=== PATIENT | female | born 1960 | race Caucasian/White ===

== ENCOUNTER 2016-10-29 03:52 | Inpatient (IN) | payer OTHER ==
[2016-10-29] VITALS (8 sets, daily range): BP systolic 94–130; BP diastolic 55–91; PULSE 45–72; RESP 16–20; TEMP 97.6–98.6; O2SAT 91–98
[~2016-10-29] VITALS: Ht 167.6 cm; Wt 135.0 kg
[2016-10-29] MEDS ORDERED: CELE40TA PO (04:11)
[2016-10-29] MEDS ORDERED: LAMI200T PO (04:11)
[2016-10-29] MEDS ORDERED: ASPIRIN 81 MG CHEW TAB PO ONE (04:15)
[2016-10-29] MEDS ORDERED: NITROGLYCERIN 2% OINT 1 GM PACKET TOP ONE (04:15)
[2016-10-29] MEDS ORDERED: SODIUM CHLORIDE 0.9% FLUSH 10 ML FLUSH IVF PRN (04:15)
[2016-10-29 04:29] LABS: AUTOMATED NEUTROPHIL # 5.3 TH/MM3 (1.8-7.7); BASOPHIL # 0.1 TH/MM3 (0-0.2); BASOPHIL % 0.7 % (0.0-2.0); EOSINOPHIL # 0.2 TH/MM3 (0-0.4); EOSINOPHIL % 2.5 % (0.0-4.0); HEMATOCRIT 43.4 % (35.0-46.0); HEMO FLAGS DIFF FINAL; LYMPH % 34.6 % (9.0-44.0); LYMPHOCYTE # 3.3 TH/MM3 (1.0-4.8); MEAN CELL VOLUME 94.7 FL (80.0-100.0); MEAN CORPUSCULAR HEMOGLOBIN 32.3 PG (27.0-34.0); MEAN CORPUSCULAR HGB CONC 34.1 % (32.0-36.0); MONO % 6.9 % (0.0-8.0); NEUT % 55.3 % (16.0-70.0); PLATELET COUNT 259 TH/MM3 (150-450); RED BLOOD COUNT 4.58 MIL/MM3 (4.00-5.30); WHITE BLOOD COUNT 9.6 TH/MM3 (4.0-11.0)
--- NOTE | 2016-10-29 04:39 | RADRPT ---
EXAM DATE/TIME: 10/29/2016 04:10 [facility] COMPARISON: No previous studies available for comparison. INDICATIONS : Chest pain. MEDICAL HISTORY : None. SURGICAL HISTORY : None. ENCOUNTER: Initial ACUITY: 1 day PAIN SCORE: 0/10 LOCATION: Bilateral chest FINDINGS: A single view of the chest demonstrates the lungs to be symmetrically aerated without evidence of mas s, infiltrate or effusion. The cardiomediastinal contours are unremarkable. Osseous structures are intact. CONCLUSION: No acute disease. Timbo Quezada MD on October 29, 2016 at 4:38 Board Certified Radiologist. This report was verified electronically.
[2016-10-29 04:48] LABS: INTERNATIONAL NORMALIZED RATIO 0.9 RATIO; PROTHROMBIN TIME - PATIENT 10.3 SEC (9.8-11.6)
[2016-10-29 05:15] LABS: ALKALINE PHOSPHATASE 76 U/L (45-117); ALT (GPT) 18 U/L (10-53); ANION GAP 8 MEQ/L (5-15); AST (GOT) 15 U/L (15-37); BICARBONATE 26.9 MEQ/L (21.0-32.0); BLOOD UREA NITROGEN 8 MG/DL (7-18); CHLORIDE 103 MEQ/L (98-107); GLOMERULAR FILTRATION RATE 94 ML/MIN (>89); POTASSIUM 3.3 MEQ/L (3.5-5.1); SODIUM (NA) 138 MEQ/L (136-145); TOTAL BILIRUBIN ADULT 0.3 MG/DL (0.2-1.0)
[2016-10-29 05:17] LABS: CREATINE KINASE 63 U/L (26-192)
--- NOTE | 2016-10-29 05:25 | PD ---
HPI Chief Complaint: Chest Pain Time Seen by Provider: 04:10 Travel History International Travel<30 days: No Contact w/Intl Traveler<30days: No Traveled to known affect area: No History of Present Illness HPI The patient is a 56 year old female who presents to the [facility] emergency department with a history of chest pain and she reports is present in bilateral sides of the chest underneath the breast that began at approximately 2 :30 AM. The patient reports that it began as a sensation of indigestion, however it has been constant and worsening in spite of taking Tums. She reports that it got worse when she tried to lie down. She reports that she last ate at midnight a handful of Bugles. The patient denies having any nausea or vomiting. She reports that she does have diaphoresis associated with this and a sensation of having a hot flash. She denies having any shortness of breath. She reports that she felt like she was having palpitations. The patient reports having a family history of heart disease in her mother. Her mother had her first MO at 48 years of age. The patient reports that because of this she did undergo a heart catheterization 8 years ago which was reportedly unremarkable. She does report having a long-standing history of hyperlipidemia, however she has tried at least 5 different lipid-lowering agents , however she has side effects of myalgias related to these medications and has had to discontinue all of them. The patient reports that she does frequently get a pressure sensation in the midepigastric area, however she attributes this to her hiatal hernia. The patient reports that she smokes one pack of cigarettes per day. She denies drinking any alcohol. On review of systems, the patient denies any fevers, cough, congestion, neck pain, diarrhea, urinary symptoms, or neurologic symptoms. [facility] Past Medical History Narrative Medical The Patient's past medical history is significant for hyperlipidemia, depression , sleep apnea, and seasonal allergies. Depression: Yes Hiatal Hernia: Yes Sleep Apnea: Yes Tetanus Vaccination: Unknown Influenza Vaccination: No ?: Not Past Surgical History Narrative Surgical The patient's past surgical history is significant for breast reduction, appendectomy, carpal tunnel release on the left, 2 prior C-sections, history of cholecystectomy. Appendectomy: Yes Section: Yes (X2) Cholecystectomy: Yes Other Surgery: Yes (BREAST RED., CARPEL TUNNEL L.) Social History Alcohol Use: No Tobacco Use: Yes Substance Use: No Allergies-Medications (Allergen,Severity, Reaction): Coded Allergies: Banana (Verified Allergy, Severe, 10/29/16) Reported Meds & Prescriptions Reported Meds & Active Scripts Active Reported Lamictal (Lamotrigine) 200 Mg Tab 200 Mg PO DAILY Celexa (Citalopram Hydrobromide) 40 Mg Tab 40 Mg PO DAILY Review of Systems Except as stated in HPI: all other systems reviewed are Neg General / Constitutional: No: Fever Eyes: No: Visual changes HENT: No: Headaches Cardiovascular: Positive: Chest Pain or Discomfort, Diaphoresis Respiratory: No: Shortness of Breath Gastrointestinal: Positive: Abdominal Pain, Indigestion, No: Nausea, Vomiting , Diarrhea, Hematemesis, Hematochezia, Constipation, Changes in Bowel Habits, Loss of Appetite Genitourinary: No: Dysuria Musculoskeletal: No: Pain Skin: No Rash Neurologic: No: Weakness Psychiatric: No: Depression Endocrine: No: Polydipsia Hematologic/Lymphatic: No: Easy Bruising Physical Exam Narrative General: The patient is a well-developed well-nourished female who is uncomfortable appearing on arrival, holding her mid epigastric area. Head and Neck exam: Head is normocephalic atraumatic. Eyes: EOMI, pupils are equal round and reactive to light. Nose: Midline septum with pink mucous membranes Mouth: Dentition unremarkable. Moist mucus membranes. Posterior oropharynx is not erythematous. No tonsillar hypertrophy. Uvula midline. Airway patent. Neck: No palpable lymphadenopathy. No nuchal rigidity. No thyromegaly. Cardiovascular: Regular rate and rhythm without murmurs, gallops, or rubs. No pulse deficit to the extremities and simultaneous auscultation and palpation of her radial artery. Lungs: Clear to auscultation bilaterally. No wheezes, rhonchi, or rales. Abdomen: Soft, with tenderness on palpation of the midepigastric area, no other tenderness on palpation of the other quadrants of the abdomen. No guarding, rebound, or rigidity. Normal bowel sounds are audible. No tenderness on palpation of McBurney's point. Negative Shidler sign. Extremities: No clubbing, cyanosis, or edema. 2+ pulses in all 4 extremities. No calf tenderness on palpation. Back: No spinous process tenderness to palpation. No costovertebral angle tenderness to palpation. Neurologic Exam: Grossly nonfocal. Skin Exam: No rash noted. Intact skin that is warm and dry. Data Data Last Documented VS Vital Signs Date Time Temp Pulse Resp B/P Pulse Ox O2 Delivery O2 Flow Rate FiO2 10/29/16 04:37 96 Nasal Cannula 2.00 10/29/16 04:03 65 20 10/29/16 03:58 98.2 128/91 Orders Electrocardiogram (10/29/16 04:11) B-Type Natriuretic Peptide (10/29/16 04:11) Ckmb (Isoenzyme) Profile (10/29/16 04:11) Complete Blood Count With Diff (10/29/16 04:11) Comprehensive Metabolic Panel (10/29/16 04:11) Magnesium (Mg) (10/29/16 04:11) Prothrombin Time / Inr (Pt) (10/29/16 04:11) Act Partial Throm Time (Ptt) (10/29/16 04:11) Troponin I (10/29/16 04:11) Lipase (10/29/16 04:11) Chest, Single Ap (10/29/16 04:11) Ecg Monitoring (10/29/16 04:11) Bilateral Bp Monitoring (10/29/16 04:11) Iv Access Insert/Monitor (10/29/16 04:11) Oximetry (10/29/16 04:11) Oxygen Administration (10/29/16 04:11) Aspirin Chew (Aspirin Chew) (10/29/16 04:15) Nitroglycerin 2% Oint (Nitroglycerin 2% (10/29/16 04:15) Sodium Chloride 0.9% Flush (Ns Flush) (10/29/16 04:15) Sodium Chlor 0.9% 1000 Ml Inj (Ns 1000 M (10/29/16 05:30) Morphine Inj (Morphine Inj) (10/29/16 05:30) Ondansetron Inj (Zofran Inj) (10/29/16 05:30) Potassium Chloride (Kcl) (10/29/16 06:00) Admit Order (Ed Use Only) (10/29/16 05:47) Labs Laboratory Tests Test 10/29/16 04:20 White Blood Count 9.6 TH/MM3 Red Blood Count 4.58 MIL/MM3 Hemoglobin 14.8 GM/DL Hematocrit 43.4 % Mean Corpuscular Volume 94.7 FL Mean Corpuscular Hemoglobin 32.3 PG Mean Corpuscular Hemoglobin 34.1 % Concent Red Cell Distribution Width 14.0 % Platelet Count 259 TH/MM3 Mean Platelet Volume 8.0 FL Neutrophils (%) (Auto) 55.3 % Lymphocytes (%) (Auto) 34.6 % Monocytes (%) (Auto) 6.9 % Eosinophils (%) (Auto) 2.5 % Basophils (%) (Auto) 0.7 % Neutrophils # (Auto) 5.3 TH/MM3 Lymphocytes # (Auto) 3.3 TH/MM3 Monocytes # (Auto) 0.7 TH/MM3 Eosinophils # (Auto) 0.2 TH/MM3 Basophils # (Auto) 0.1 TH/MM3 CBC Comment DIFF FINAL Differential Comment Prothrombin Time 10.3 SEC Prothromb Time International 0.9 RATIO Ratio Activated Partial 28.0 SEC Thromboplast Time Sodium Level 138 MEQ/L Potassium Level 3.3 MEQ/L Chloride Level 103 MEQ/L Carbon Dioxide Level 26.9 MEQ/L Anion Gap 8 MEQ/L Blood Urea Nitrogen 8 MG/DL Creatinine 0.65 MG/DL Estimat Glomerular Filtration 94 ML/MIN Rate Random Glucose 104 MG/DL Calcium Level 8.7 MG/DL Magnesium Level 2.0 MG/DL Total Bilirubin 0.3 MG/DL Aspartate Amino Transf 15 U/L (AST/SGOT) Alanine Aminotransferase 18 U/L (ALT/SGPT) Alkaline Phosphatase 76 U/L Total Creatine Kinase 63 U/L Troponin I LESS THAN 0.02 NG/ML B-Type Natriuretic Peptide 16 PG/ML Total Protein 7.4 GM/DL Albumin 3.5 GM/DL Triglycerides Level 134 MG/DL Cholesterol Level 257 MG/DL LDL Cholesterol 192 MG/DL HDL Cholesterol 37.8 MG/DL Cholesterol/HDL Ratio 6.79 RATIO Lipase 5705 U/L MDM Medical Decision Making Medical Screen Exam Complete: Yes Emergency Medical Condition: Yes Medical Record Reviewed: Yes Interpretation(s) Last Impressions Chest X-Ray 10/29/16 0411 Signed Impressions: Service Date/Time: Saturday, October 29, 2016 04:10 - CONCLUSION: No acute disease. Timbo Quezada MD Differential Diagnosis Acute coronary syndrome, versus pancreatitis, versus biliary colic Narrative Course During the course of the patients emergency department visit, the patients history, examination, and differential diagnosis were reviewed with the patient. The patient had IV access obtained and blood work sent for analysis. The patient was placed on a residential monitor with oximetry and blood pressure monitoring and ECG was done on arrival. The patient's ECG reveals a sinus rhythm heart rate is 63, QRS duration is 102 ms, QTc is [address] segment elevation. The patient was initially provided aspirin 162 mg by mouth 1, nitroglycerin 1 inch of paste the chest wall, Zofran 4 mg IV, morphine 4 mg IV, normal saline IV fluids. The patients laboratory studies were reviewed and remarkable for a CBC that is within normal limits, CMP is remarkable for potassium of 3.3, CPK 63, troponin I less than 0.02, BNP 16, lipase 5705, PT 10.3, PTT 28 Radiology studies were reviewed and remarkable for a chest x-ray that shows no acute abnormality. The patients results were discussed with the patient, including the plan of care. I explained that further testing and/ or monitoring is indicated based on the patients history, examination, and/ or laboratory findings. Therefore, I recommended admission for additional evaluation. The patient expressed understanding and was agreeable with this plan. The patient was admitted to the hospital in stable condition and sent to a bed under the care of the [facility] service. Physician Communication Physician Communication The patient's case was discussed with Dr. Hernandes who did agree to admit the patient for further evaluation and treatment at this time. Diagnosis Primary Impression: Acute pancreatitis Qualified Code: K85.90 - Acute pancreatitis, unspecified complication status, unspecified pancreatitis type Admitting Information Admitting Physician Requests: Savanna Nayak MD Oct 29, 2016 05:25
[2016-10-29] MEDS ORDERED: SODIUM CHLOR 0.9% 1000 ML INJ 1,000 ML IV ONE (05:30)
[2016-10-29] MEDS ORDERED: MORPHINE SULFATE 4 MG/ML INJ IV PUSH ONE (05:30)
[2016-10-29] MEDS ORDERED: ONDANSETRON HCL 4 MG/2 ML VIAL IV PUSH ONE (05:30)
[2016-10-29] MEDS ORDERED: ONDANSETRON HCL 4 MG/2 ML VIAL IVP PRN (06:00)
[2016-10-29] MEDS ORDERED: SODIUM CHLORIDE 0.9% FLUSH 10 ML FLUSH IV FLUSH PRN (06:00)
[2016-10-29] MEDS ORDERED: POTASSIUM CHLORIDE 20 MEQ CONTROLLED RELEASE TAB PO ONE (06:00)
[2016-10-29] MEDS ORDERED: NALOXONE HCL 0.4 MG/ML AMP IV PRN (06:00)
[2016-10-29] MEDS ORDERED: HYDROmorphone HCL PF 1 MG/ML VIAL IV PUSH ONE (06:15)
[2016-10-29] MEDS ORDERED: PANTOPRAZOLE SODIUM 40 MG VIAL IV PUSH ONE (06:30)
[2016-10-29] MEDS: SODIUM CHLORIDE 0.9% FLUSH 10 ML FLUSH IV FLUSH SCH ×2 (09:00→21:00)
[2016-10-29 10:48] LABS: HDL CHOLESTEROL 37.8 MG/DL (40.0-60.0)
[2016-10-29] MEDS ORDERED: MORPHINE SULFATE 4 MG/ML INJ IV PUSH PRN (13:00)
--- NOTE | 2016-10-29 15:05 | EKG ---
Date Performed: 10/29/2016 Time Performed: 03:55:17 PTAGE: 56 years EKG: Sinus rhythm NONSPECIFIC T-WAVE ABNORMALITY BORDERLINE ECG PREVIOUS TRACING : 10/27/2016 12.11 DOCTOR: Tasha Bauer Interpretating Date/Time 10/29/2016 14:59:06
[2016-10-29] MEDS ORDERED: HYDROmorphone HCL PF 1 MG/ML VIAL IV PUSH PRN (16:45)
--- NOTE | 2016-10-29 17:18 | HHI.HP ---
HPI Service [facility] Primary Care Physician No Primary Care Physician Admission Diagnosis Acute pancreatitis Diagnoses: Chief Complaint: Epigastric pain Travel History International Travel<30 Days: No Contact w/Intl Traveler <30 Da: No Traveled to Known Affected Are: No History of Present Illness Written by Bulmaro Doll, acting as scribe for Dr. Estrada on 10/29/16 at 16:29. This note was transcribed by scribSANDY Murdock on 10/29/2016. I, Dr. Santana Estrada personally performed the history, physical exam, and medical decision making; and confirmed the accuracy of the information in the transcribed note. Authenticated by Dr. Santana Estrada on 10/30/16 at 00:03. 56-year-old female with past medical history of anxiety/depression, HLD, CHUY, hiatal hernia who presented with lower chest/epigastric pain. Patient states that about 2 AM she was trying to go to sleep and developed sudden onset of epigastric discomfort. She locates the pain below her breast bone. She states the pain radiated under her breasts and to her back bilaterally. She had associated sweating and palpitations. The pain was not relieved with Tums. This pain was not similar to what she had with her gallbladder in the past. She denies any prior history of heart disease. Due to family history she had a cardiac catheterization 7 years ago which was reportedly normal. She has routine follow-up with gastroenterology regarding a moderate hiatal hernia for which she does take a PPI and has had an EGD in the past. She does take Advil 3 or 4 times a week for headache. She states the pain comes in waves and lasts 15-20 minutes at a time before spontaneously resolving. She denies any nausea, vomiting, fever, chills. Denies any alcohol use. Symptoms are not improved with morphine. Review of Systems Except as stated in HPI: all other systems reviewed are Neg Past Family Social History Past Medical History Anxiety/depression Hyperlipidemia, statin intolerant Sleep apnea on CPAP History of hiatal hernia Past Surgical History Breast reduction Appendectomy Left carpal tunnel repair 2 Cholecystectomy Cardiac catheterization 7 years ago EGD Reported Medications Reported Lamictal (Lamotrigine) 200 Mg Tab 200 Mg PO DAILY Celexa (Citalopram Hydrobromide) 40 Mg Tab 40 Mg PO DAILY Prevacid daily Abdominal migraine when necessary Allergies: Coded Allergies: Banana (Verified Allergy, Severe, 10/29/16) Active Ordered Medications Current Medications Medications (Trade) Dose Ordered Sig/Hilario Route Start Time Stop Time Status Last Admin (NS Flush) 2 ml UNSCH PRN IV FLUSH 10/29/16 06:00 (NS Flush) 2 ml BID IV FLUSH 10/29/16 09:00 10/29/16 09:00 (Zofran Inj) 4 mg Q6H PRN IVP 10/29/16 06:00 (Narcan Inj) 0.4 mg UNSCH PRN IV 10/29/16 06:00 (Dilaudid Pf Inj) 1 mg Q4H PRN IV PUSH 10/29/16 16:45 Pantoprazole Sodium 40 mg 40 mg Q12H IV PUSH 10/29/16 18:00 (NS 1000 ml Inj) 1,000 ml @ 200 mls/hr Q5H IV 10/29/16 17:00 (CeleXA) 40 mg DAILY PO 10/30/16 09:00 (LaMICtal) 200 mg DAILY PO 10/30/16 09:00 UNV Family History Mother had 3 heart attacks, first one at 48 Father had hypertension and from an MVA Social History Tobacco use Has 2 alcoholic beverages a month Denies any drug use Physical Exam Vital Signs Vital Signs Date Time Temp Pulse Resp B/P Pulse Ox O2 Delivery O2 Flow Rate FiO2 10/29/16 16:01 97.6 54 18 113/63 95 10/29/16 08:40 98.6 68 16 94/65 91 10/29/16 07:11 72 18 130/73 96 Room Air 10/29/16 06:06 65 16 130/73 98 Nasal Cannula 3 10/29/16 04:37 96 Nasal Cannula 2.00 10/29/16 04:03 65 20 96 Nasal Cannula 3 10/29/16 03:58 98.2 65 18 128/91 95 Physical Exam GENERAL: Well-developed well-nourished morbidly obese. In no acute distress. SKIN: Warm and dry. No lesions noted. HEENT: Normocephalic. Pupils equal and round. Mucous membranes pink and moist. CARDIOVASCULAR: Regular rate and rhythm. No murmur appreciated. RESPIRATORY: No accessory muscle use. Clear to auscultation. Breath sounds equal bilaterally. GASTROINTESTINAL: Abdomen soft, epigastric TTP, nondistended. Bowel sounds x4. MUSCULOSKELETAL: No obvious deformities. No clubbing or cyanosis. No edema. NEUROLOGICAL: Awake and alert. No focal neurological deficits. Moves upper and lower extremities spontaneously. Normal speech. PSYCHIATRIC: Appropriate mood and affect; insight and judgment normal. Laboratory Laboratory Tests Test 10/29/16 04:20 White Blood Count 9.6 Red Blood Count 4.58 Hemoglobin 14.8 Hematocrit 43.4 Mean Corpuscular Volume 94.7 Mean Corpuscular Hemoglobin 32.3 Mean Corpuscular Hemoglobin 34.1 Concent Red Cell Distribution Width 14.0 Platelet Count 259 Mean Platelet Volume 8.0 Neutrophils (%) (Auto) 55.3 Lymphocytes (%) (Auto) 34.6 Monocytes (%) (Auto) 6.9 Eosinophils (%) (Auto) 2.5 Basophils (%) (Auto) 0.7 Neutrophils # (Auto) 5.3 Lymphocytes # (Auto) 3.3 Monocytes # (Auto) 0.7 Eosinophils # (Auto) 0.2 Basophils # (Auto) 0.1 CBC Comment DIFF FINAL Differential Comment Prothrombin Time 10.3 Prothromb Time International 0.9 Ratio Activated Partial 28.0 Thromboplast Time Sodium Level 138 Potassium Level 3.3 Chloride Level 103 Carbon Dioxide Level 26.9 Anion Gap 8 Blood Urea Nitrogen 8 Creatinine 0.65 Estimat Glomerular Filtration 94 Rate Random Glucose 104 Calcium Level 8.7 Magnesium Level 2.0 Total Bilirubin 0.3 Aspartate Amino Transf 15 (AST/SGOT) Alanine Aminotransferase 18 (ALT/SGPT) Alkaline Phosphatase 76 Total Creatine Kinase 63 Troponin I LESS THAN 0.02 B-Type Natriuretic Peptide 16 Total Protein 7.4 Albumin 3.5 Triglycerides Level 134 Cholesterol Level 257 LDL Cholesterol 192 HDL Cholesterol 37.8 Cholesterol/HDL Ratio 6.79 Lipase 5705 Result Diagram: 10/29/1641910/29/16419 Imaging Last Impressions Chest X-Ray 10/29/16410 Signed Impressions: Service Date/Time: Saturday, October 29, 2016 04:10 - CONCLUSION: No acute disease. Timbo Quezada MD Assessment and Plan Problem List: (1) Acute pancreatitis ICD Code: K85.90 Status: Acute Assessment and Plan 56-year-old female with past medical history of anxiety/depression, HLD, CHUY, hiatal hernia who presented with lower chest/epigastric pain Lower chest/epigastric pain: Possibly secondary to pancreatitis vs atypical chest pain. Initial EKG with NSR, no ischemic changes. Initial troponin within normal limits. S/P aspirin in the ED. -Rule out ACS per protocol with serial cardiac enzymes and EKGs -Monitor on telemetry -Pain control with IV Dilaudid -Further treatment for pancreatitis as below Acute pancreatitis: Unclear etiology. Lipase 5700. LFTs and triglycerides within normal limits. Does have history of moderate hiatal hernia and moderate NSAID use, at risk for PUD.. -Aggressive IVF -Pain control -IV PPI -Clear liquids for now -Check ultrasound to assess bile duct -Consult GI. Since Gallstone, alcohol, triglyceride related pancreatitis is a low possibility, Autoimmune pancreatitis as well as other causes such as pancreatic divisum are possible etiologies. May benefit from an MRI study. Will check IGG4. Anxiety/depression: Chronic, stable. Continue Celexa and Lamictal. Sleep apnea on CPAP: Consult respiratory therapy to resume CPAP at night. DVT prophylaxis: SCDs Discussed Condition With Patient, RN Problem Qualifiers (1) Acute pancreatitis: Qualified Code: K85.90 - Acute pancreatitis, unspecified complication status, unspecified pancreatitis type Bulmaro Doll Oct 29, 2016 17:18 Ashlyn Estrada DO Oct 30, 2016 00:05
[2016-10-29] MEDS: SODIUM CHLOR 0.9% 1000 ML INJ 1,000 ML IV SCH (17:22)
[2016-10-29] MEDS: PANTOPRAZOLE SODIUM 40 MG VIAL IV PUSH SCH (18:46)
--- NOTE | 2016-10-29 19:32 | RADRPT ---
EXAM DATE/TIME: 10/29/2016 18:42 [facility] COMPARISON: No previous studies available for comparison. INDICATIONS : Pancreatitis/evaluate common bile duct. MEDICAL HISTORY : Hypercholesterolemia. Sleep apnea. Hernia, hiatal. Diabetes. Depression. SURGICAL HISTORY : Appendectomy. Cholecystectomy. section. Breast reduction. Carpel tunnel surgery. ENCOUNTER: Initial ACUITY: 1 day PAIN SCORE: 8/10 LOCATION: Right upper quadrant MEASUREMENTS: LIVER: 16.0 cm length COMMON DUCT: 3 mm RIGHT KIDNEY: 12.0 x 5.2 x 5.0 cm FINDINGS: Pancreas has a nonspecific heterogeneous appearance. No peripancreatic fluid collections. Bile duct i s normal at 3 mm. Liver unremarkable. Portal venous flow normal direction. Right kidney measures 12 c m in length without hydronephrosis. CONCLUSION: 1. No biliary ductal dilatation. Previous cholecystectomy. No peripancreatic fluid collections. Kurt Kendall MD on October 29, 2016 at 19:29 Board Certified Radiologist. This report was verified electronically.
[2016-10-30 01:11] VITALS: BP 113/57; PULSE 60; RESP 18; TEMP 98.2; O2SAT 99
[2016-10-30 03:52] VITALS: O2SAT 95
[2016-10-30 04:10] LABS: AUTOMATED NEUTROPHIL # 3.1 TH/MM3 (1.8-7.7); BASOPHIL # 0.1 TH/MM3 (0-0.2); EOSINOPHIL # 0.2 TH/MM3 (0-0.4); EOSINOPHIL % 2.8 % (0.0-4.0); HEMATOCRIT 37.5 % (35.0-46.0); HEMO FLAGS DIFF FINAL; LYMPH % 37.7 % (9.0-44.0); LYMPHOCYTE # 2.3 TH/MM3 (1.0-4.8); MEAN CELL VOLUME 94.6 FL (80.0-100.0); MEAN CORPUSCULAR HEMOGLOBIN 32.6 PG (27.0-34.0); MEAN CORPUSCULAR HGB CONC 34.5 % (32.0-36.0); MONO % 6.6 % (0.0-8.0); NEUT % 51.9 % (16.0-70.0); PLATELET COUNT 214 TH/MM3 (150-450); RED BLOOD COUNT 3.96 MIL/MM3 (4.00-5.30); RED CELL DISTRIBUTION WIDTH 13.8 % (11.6-17.2)
[2016-10-30 04:34] LABS: ALKALINE PHOSPHATASE 97 U/L (45-117); ALT (GPT) 223 U/L (10-53); ANION GAP 4 MEQ/L (5-15); AST (GOT) 140 U/L (15-37); BICARBONATE 32.1 MEQ/L (21.0-32.0); BLOOD UREA NITROGEN 5 MG/DL (7-18); CHLORIDE 105 MEQ/L (98-107); GLOMERULAR FILTRATION RATE 92 ML/MIN (>89); POTASSIUM 4.4 MEQ/L (3.5-5.1); SODIUM (NA) 141 MEQ/L (136-145); TOTAL BILIRUBIN ADULT 0.4 MG/DL (0.2-1.0)
--- NOTE | 2016-10-30 06:07 | PD.CONS ---
HPI History of Present Illness This is a 56 year old female who presented to the ER with chest pain and indigestion early this morning. She had a salad with chopped eggs, tomatoes, and blue cheese dressing and a handful of bugles prior to going to bed. She then started having constant epigastric pain that was radiating to her chest and back around 2am. She states that it was a severe pressure, sharp at times. She had associated diaphoresis, but no nausea or vomiting. She thought it was indigestion and took TUMS, but had no relief. After awhile, it did fade away for about 5 minutes, but states that it came right back and was constant again and therefore she called for help. She denies any shortness of breath, numbness, tingling. She denies any diarrhea, constipation, melena, or hematochezia. Gall Bladder Ultrasound (10/29/16)----> 1. No biliary ductal dilatation. Previous cholecystectomy. No peripancreatic fluid collections. GI was consulted for pancreatitis. She denies any history of pancreatitis. She had her gallbladder removed about 4 years ago. She denies any family history of pancreatitis. She rarely drinks alcohol. She denies any history of autoimmune disease. She takes Advil Migraine, usually about 3x a week (2 at a time). She has a history of hyperlipidemia. She denies any new medications. She denies any herbal supplements. She has a remote history of PUD. She does take a PPI (Prilosec or Prevacid) on a daily basis. She states that she does have issues eating with her hiatal hernia. It has been several years since she had an endoscopy. PFSH Past Medical History Anxiety/depression Hyperlipidemia Obstructive sleep apnea Hiatal hernia Seasonal allergies GERD Past Surgical History Breast reduction Appendectomy Left carpal tunnel repair 2 Cholecystectomy Cardiac catheterization 7 years ago EGD Coded Allergies: Banana (Verified Allergy, Severe, 10/29/16) Medications Allergies Coded Allergies Type Severity Reaction Last Updated Verified Banana Allergy Severe 10/29/16 Yes Active Scripts Medications Dose Route/Sig Days Date Category Lamictal (Lamotrigine) 200 Mg Tab 200 Mg PO DAILY 10/29/16 Reported Celexa (Citalopram Hydrobromide) 40 Mg Tab 40 Mg PO DAILY 10/29/16 Reported Family History Mother with CAD, AR x3, first one at age 48 Father had hypertension and from an MVA Social History Tobacco use Has 2 alcoholic beverages a month Denies any drug use Review of Systems Constitutional: DENIES: Fever, Chills, Change in appetite Respiratory: DENIES: Cough, Shortness of breath Cardiovascular: COMPLAINS OF: Chest pain Gastrointestinal: COMPLAINS OF: Abdominal pain, DENIES: Black stools, Bloody stools, Constipation, Diarrhea, Nausea, Vomiting, Heartburn, Hematemesis Musculoskeletal: DENIES: Joint pain Hematologic/lymphatic: DENIES: Bruising Neurologic: COMPLAINS OF: Headache Psychiatric: DENIES: Confusion GI Exam Vitals I&O Vital Signs Date Time Temp Pulse Resp B/P Pulse Ox O2 Delivery O2 Flow Rate FiO2 10/30/16 03:52 95 CPAP 2 10/30/16 01:11 98.2 60 18 113/57 99 10/29/16 19:40 98.0 45 20 118/55 97 10/29/16 16:01 97.6 54 18 113/63 95 10/29/16 10:21 59 10/29/16 08:40 98.6 68 16 94/65 91 10/29/16 07:11 72 18 130/73 96 Room Air 10/29/16 06:06 65 16 130/73 98 Nasal Cannula 3 I/O 10/29/16 10/29/16 10/29/16 10/30/16 10/30/16 10/30/16 07:00 15:00 23:00 07:00 15:00 23:00 Intake Total 200 ml Balance 200 ml Intake Oral 200 ml Imaging Last Impressions Chest X-Ray 10/29/16 0411 Signed Impressions: Service Date/Time: Saturday, October 29, 2016 04:10 - CONCLUSION: No acute disease. Timbo Quezada MD Gall Bladder Ultrasound 10/29/16 0000 Signed Impressions: Service Date/Time: Saturday, October 29, 2016 18:42 - CONCLUSION: 1. No biliary ductal dilatation. Previous cholecystectomy. No peripancreatic fluid collections. Kurt Kendall MD Laboratory Test 10/29/16 10/29/16 10/30/16 18:25 23:03 03:49 Troponin I LESS THAN 0.02 LESS THAN 0.02 NG/ML NG/ML White Blood Count 6.0 TH/MM3 Red Blood Count 3.96 MIL/MM3 Hemoglobin 12.9 GM/DL Hematocrit 37.5 % Mean Corpuscular Volume 94.6 FL Mean Corpuscular Hemoglobin 32.6 PG Mean Corpuscular Hemoglobin 34.5 % Concent Red Cell Distribution Width 13.8 % Platelet Count 214 TH/MM3 Mean Platelet Volume 8.4 FL Neutrophils (%) (Auto) 51.9 % Lymphocytes (%) (Auto) 37.7 % Monocytes (%) (Auto) 6.6 % Eosinophils (%) (Auto) 2.8 % Basophils (%) (Auto) 1.0 % Neutrophils # (Auto) 3.1 TH/MM3 Lymphocytes # (Auto) 2.3 TH/MM3 Monocytes # (Auto) 0.4 TH/MM3 Eosinophils # (Auto) 0.2 TH/MM3 Basophils # (Auto) 0.1 TH/MM3 CBC Comment DIFF FINAL Differential Comment Sodium Level 141 MEQ/L Potassium Level 4.4 MEQ/L Chloride Level 105 MEQ/L Carbon Dioxide Level 32.1 MEQ/L Anion Gap 4 MEQ/L Blood Urea Nitrogen 5 MG/DL Creatinine 0.66 MG/DL Estimat Glomerular Filtration 92 ML/MIN Rate Random Glucose 87 MG/DL Calcium Level 8.2 MG/DL Total Bilirubin 0.4 MG/DL Aspartate Amino Transf 140 U/L (AST/SGOT) Alanine Aminotransferase 223 U/L (ALT/SGPT) Alkaline Phosphatase 97 U/L Total Protein 6.5 GM/DL Albumin 2.9 GM/DL Lipase 344 U/L Physical Examination HEENT: Normocephalic; atraumatic; no jaundice. CHEST: CTA CARDIAC: RRR ABDOMEN: Soft, nondistended, epigastric tenderness; no hepatosplenomegaly; bowel sounds are present in all four quadrants. EXTREMITIES: No clubbing, cyanosis, or edema. SKIN: Normal; no rash; no jaundice. PRODUCT OPERATIONS ASSOCIATE: No focal deficits; alert and oriented times three. Assessment and Plan Plan ASSESSMENT: - Epigastric pain with elevated lipase. Sudden onset early this am- pressure/ sharp pain in epigastric area, radiating to chest and back. Lipase 5055 on admission, now normalized. Gall Bladder Ultrasound (10/29/16)-- --> 1. No biliary ductal dilatation. Previous cholecystectomy. No peripancreatic fluid collections. No hx of pancreatitis. S/P Cholecystectomy. No family hx pancreatitis. No autoimmune dz. Rare ETOH and nothing recently. Triglycerides 134. No new meds/herbal supplements. She does have GERD/HH and has issues with this. She has a remote hx of PUD and takes Advil (2 at a time) usually 3x a week. ? R/T duodenitis/duodenal ulcer. IgG 4 pending. - GERD, HH. PPI - CHUY, Depression per attending PLAN: - Plan for EGD today - Obtain consents - PPI - NPO - Await IgG 4 level - Monitor labs - Supportive care - Further recommendations to follow based on results of above - Pt seen and examined by Dr. Trujillo and myself and this note is written on his behalf Yolanda Brown Oct 30, 2016 06:07
[2016-10-30] MEDS: PANTOPRAZOLE SODIUM 40 MG VIAL IV PUSH SCH (06:21)
[2016-10-30] MEDS: SODIUM CHLOR 0.9% 1000 ML INJ 1,000 ML IV SCH ×3 (06:22→13:00)
[2016-10-30 07:10] VITALS: PULSE 63
[2016-10-30 07:47] VITALS: BP 128/66; PULSE 51; RESP 16; TEMP 98.2; O2SAT 94
[2016-10-30 08:45] VITALS: O2SAT 95
[2016-10-30] MEDS: SODIUM CHLORIDE 0.9% FLUSH 10 ML FLUSH IV FLUSH SCH (09:00)
[2016-10-30] MEDS ORDERED: CITALOPRAM HYDROBROMIDE 40 MG TAB PO SCH (09:00)
[2016-10-30] MEDS ORDERED: lamoTRIgine 100 MG TAB PO SCH (09:00)
[2016-10-30] MEDS ORDERED: PROPOFOL 200 MG/20 ML AMP IV ONE (09:58)
[2016-10-30] MEDS ORDERED: DO NOT ADM ANY ANTICOAGULANT DRUGS PRN (10:05)
--- NOTE | 2016-10-30 10:06 | HHI.GIFU ---
Subjective Remarks EGD today shows hiatal hernia and mild gastritis. No ulcers. Pt feels improved. Allow clear liquids. If stable this afternoon may discharge to home and followup as outpatient. Objective Vitals I&O Vital Signs Date Time Temp Pulse Resp B/P Pulse Ox O2 Delivery O2 Flow Rate FiO2 10/30/16 08:45 95 21 10/30/16 07:47 98.2 51 16 128/66 94 10/30/16 03:52 95 CPAP 2 10/30/16 01:11 98.2 60 18 113/57 99 10/29/16 19:40 98.0 45 20 118/55 97 10/29/16 16:01 97.6 54 18 113/63 95 10/29/16 10:21 59 I/O 10/29/16 10/29/16 10/29/16 10/30/16 10/30/16 10/30/16 06:59 14:59 22:59 06:59 14:59 22:59 Intake Total 200 ml Balance 200 ml Intake Oral 200 ml Laboratory Laboratory Tests Test 10/29/16 10/29/16 10/30/16 18:25 23:03 03:49 Troponin I LESS THAN 0.02 LESS THAN 0.02 White Blood Count 6.0 Red Blood Count 3.96 Hemoglobin 12.9 Hematocrit 37.5 Mean Corpuscular Volume 94.6 Mean Corpuscular Hemoglobin 32.6 Mean Corpuscular Hemoglobin 34.5 Concent Red Cell Distribution Width 13.8 Platelet Count 214 Mean Platelet Volume 8.4 Neutrophils (%) (Auto) 51.9 Lymphocytes (%) (Auto) 37.7 Monocytes (%) (Auto) 6.6 Eosinophils (%) (Auto) 2.8 Basophils (%) (Auto) 1.0 Neutrophils # (Auto) 3.1 Lymphocytes # (Auto) 2.3 Monocytes # (Auto) 0.4 Eosinophils # (Auto) 0.2 Basophils # (Auto) 0.1 CBC Comment DIFF FINAL Differential Comment Sodium Level 141 Potassium Level 4.4 Chloride Level 105 Carbon Dioxide Level 32.1 Anion Gap 4 Blood Urea Nitrogen 5 Creatinine 0.66 Estimat Glomerular Filtration 92 Rate Random Glucose 87 Calcium Level 8.2 Total Bilirubin 0.4 Aspartate Amino Transf 140 (AST/SGOT) Alanine Aminotransferase 223 (ALT/SGPT) Alkaline Phosphatase 97 Total Protein 6.5 Albumin 2.9 Lipase 344 Physical Exam HEENT: Pupils round and reactive to light; normocephalic; atraumatic; no jaundice. Throat is clear. NECK: Neck is supple, no JVD, no lymphadenopathy. CHEST: Chest is clear to auscultation and percussion. CARDIAC: Regular rate and rhythm with no murmur gallop or rubs. ABDOMEN: Soft, nondistended, nontender; no hepatosplenomegaly; bowel sounds are present in all four quadrants. EXTREMITIES: No clubbing, cyanosis, or edema. SKIN: Normal; no rash; no jaundice. CABLE WIRER: No focal deficits; alert and oriented times three. Assessment and Plan Plan ASSESSMENT: - Epigastric pain with elevated lipase. Sudden onset early this am- pressure/ sharp pain in epigastric area, radiating to chest and back. Lipase 5055 on admission, now normalized. Gall Bladder Ultrasound (10/29/16)-- --> 1. No biliary ductal dilatation. Previous cholecystectomy. No peripancreatic fluid collections. No hx of pancreatitis. S/P Cholecystectomy. No family hx pancreatitis. No autoimmune dz. Rare ETOH and nothing recently. Triglycerides 134. No new meds/herbal supplements. She does have GERD/HH and has issues with this. She has a remote hx of PUD and takes Advil (2 at a time) usually 3x a week. ? R/T duodenitis/duodenal ulcer. IgG 4 pending. - GERD, HH. PPI - CHUY, Depression per attending EGD today shows no ulcers. Hiatal hernia and mild gastritis. Overall pattern is consistent with gallstone passage or Sphincter of Oddi Dysfunction type PLAN: Clear liquid diet Consider ERCP vs biliary manometry/EUS - Await IgG 4 level - Monitor labs - Supportive care Daniel Trujillo MD Oct 30, 2016 10:06
[2016-10-30 11:44] VITALS: BP 120/66; PULSE 57; RESP 16; TEMP 97.6; O2SAT 95
[2016-10-30] MEDS ORDERED: PROT40TA PO (14:34)
--- NOTE | 2016-10-30 14:34 | HHI.DCPOC ---
Discharge Care Plan Diagnosis: (1) Acute pancreatitis Goals to Promote Your Health * To prevent worsening of your condition and complications * To maintain your health at the optimal level Directions to Meet Your Goals Take your medications as prescribed Follow your dietary instruction Follow activity as directed Keep your appointments as scheduled Take your immunizations and boosters as scheduled If your symptoms worsen call your PCP, if no PCP go to Urgent Care Center or Emergency Room Smoking is Dangerous to Your Health. Avoid second hand smoke Call the 24-hour hour crisis hotline for domestic abuse at Courtney Pretty PA-C Oct 30, 2016 2:34 pm
--- NOTE | 2016-10-30 14:42 | HHI.PR ---
Subjective Remarks Follow up for epigastric pain, pancreatitis. The patient is seen s/p EGD which revealed gastritis and hiatal hernia. The patient denies any abdominal pain/ nausea/vomiting overnight. She wants to eat. Denies any other medical complaints. Extensively discussed elevated cholesterol/LDL, patient reports she has been on 5 different cholesterol meds including different statin, Livalo, CoQ10, and others; however all meds give side effects of muscle cramps. Objective Vitals Vital Signs Date Time Temp Pulse Resp B/P Pulse Ox O2 Delivery O2 Flow Rate FiO2 10/30/16 11:44 97.6 57 16 120/66 95 10/30/16 10:30 97.7 52 19 117/70 96 Room Air 10/30/16 10:15 48 16 123/60 96 10/30/16 10:09 97.7 56 16 124/58 97 Nasal Cannula 2 10/30/16 08:45 95 21 10/30/16 07:47 98.2 51 16 128/66 94 10/30/16 07:10 63 10/30/16 03:52 95 CPAP 2 10/30/16 01:11 98.2 60 18 113/57 99 10/29/16 19:40 98.0 45 20 118/55 97 10/29/16 16:01 97.6 54 18 113/63 95 I/O 10/29/16 10/29/16 10/29/16 10/30/16 10/30/16 10/30/16 07:00 15:00 23:00 07:00 15:00 23:00 Intake Total 200 ml Balance 200 ml Intake Oral 200 ml Result Diagram: 10/30/16 0349 10/30/16 0349 Imaging Last Impressions Chest X-Ray 10/29/16 0411 Signed Impressions: Service Date/Time: Saturday, October 29, 2016 04:10 - CONCLUSION: No acute disease. Timbo Quezada MD Gall Bladder Ultrasound 10/29/16 0000 Signed Impressions: Service Date/Time: Saturday, October 29, 2016 18:42 - CONCLUSION: 1. No biliary ductal dilatation. Previous cholecystectomy. No peripancreatic fluid collections. Kurt Kendall MD Objective Remarks GENERAL: Well-nourished, well-developed obese female patient in NAD. SKIN: Warm and dry. No rash. HEENT: Normocephalic. Atraumatic. Pupils equal and round. Mucous membranes pink and moist. NECK: Supple. Trachea midline. CARDIOVASCULAR: Regular rate and rhythm. S1, S2 noted. No murmur appreciated. RESPIRATORY: No accessory muscle use. Clear to auscultation. Breath sounds equal bilaterally. GASTROINTESTINAL: Abdomen soft, non-tender, nondistended. Normoactive bowel sounds x4. MUSCULOSKELETAL: No obvious deformities. Extremities without clubbing, cyanosis , or edema. NEUROLOGICAL: Awake and alert. No obvious cranial nerve deficits. Motor grossly within normal limits. Normal speech. PSYCHIATRIC: Appropriate mood and affect; insight and judgment normal. Medications and IVs Current Medications Medications (Trade) Dose Ordered Sig/Hilario Route Start Time Stop Time Status Last Admin (NS Flush) 2 ml UNSCH PRN IV FLUSH 10/29/16 06:00 (NS Flush) 2 ml BID IV FLUSH 10/29/16 09:00 10/29/16 09:00 (Zofran Inj) 4 mg Q6H PRN IVP 10/29/16 06:00 (Narcan Inj) 0.4 mg UNSCH PRN IV 10/29/16 06:00 (Dilaudid Pf Inj) 1 mg Q4H PRN IV PUSH 10/29/16 16:45 Pantoprazole Sodium 40 mg 40 mg Q12H IV PUSH 10/29/16 18:00 10/30/16 06:21 (NS 1000 ml Inj) 1,000 ml @ 200 mls/hr Q5H IV 10/29/16 17:00 10/30/16 06:22 (CeleXA) 40 mg DAILY PO 10/30/16 09:00 10/30/16 11:04 (LaMICtal) 200 mg DAILY PO 10/30/16 09:00 10/30/16 11:04 Miscellaneous Information ALL NURSING DEPARTME... UNSCH PRN .XX 10/30/16 10:05 10/31/16 10:04 A/P Problem List: (1) Acute pancreatitis ICD Code: K85.90 Status: Acute Assessment and Plan 56-year-old female with past medical history of anxiety/depression, HLD, CHUY, hiatal hernia who presented with lower chest/epigastric pain Epigastric pain: Suspect secondary to pancreatitis vs atypical chest pain. Initial EKG with NSR, no ischemic changes. Initial troponin within normal limits. S/P aspirin in the ED. -ACS ruled out with negative serial cardiac enzymes and EKGs -Monitor on telemetry -Pain control with IV Dilaudid -Further treatment for pancreatitis as below -pain resolved Acute pancreatitis: Unclear etiology. Lipase 5700. LFTs initially wnl, now elevated to AST 140, ALT 223. Evaluated by GI, suspect secondary to gallstone passage or Sphincter of Oddi dysfunction. Does also have history of moderate hiatal hernia and moderate NSAID use, at risk for PUD.. -Given IVF hydration, Pain control -IV PPI -Clear liquids for now -GB U/S with no biliary ductal dilatation; no peripancreatic fluid -lipase decreased from 5705 to 344 today and symptoms resolved -Consulted GI, s/p EGD 10/30 which showed mild gastritis and hiatal hernia; advanced diet to clear liquid, cleared for discharge if tolerates well Anxiety/depression: Chronic, stable. Continue Celexa and Lamictal. Sleep apnea on CPAP: Consult respiratory therapy to resume CPAP at night. Hyperlipidemia: LDL 192. Patient very well aware of this, discussed extensively , she has tried 5+ meds including statins, Livalo, CoQ10 in the past, intolerant secondary to muscle cramping/pain. Continue outpatient f/up with PCP. DVT prophylaxis: SCDs Discharge Planning Discharge patient to home Condition on discharge: Improved Heart Healthy Diet as tolerated Ad Emily activity Rx written: Protonix 40mg daily Follow-up with primary care physician and gastroenterology within 1 week Problem Qualifiers (1) Acute pancreatitis: Qualified Code: K85.90 - Acute pancreatitis, unspecified complication status, unspecified pancreatitis type Courtney Pretty PA-C Oct 30, 2016 2:42 pm
[2016-11-05 03:50] LABS: IGG SUBCLASSES 4 59.5 mg/dL (4-86)
== END 2016-10-30 17:35 | disposition home or self-care (01) | DRG 440 ==
LOC: NEPE 03:52 → NEDA 05:48 → NEPHCDU 08:28
PROVIDERS: ADMIT Internal Medicine; ATTEND Internal Medicine
PROC: 0DB68ZX Excision of Stomach, Via Natural or Artificial Opening Endoscopic, Diagnostic (ICD-10-PCS; principal; 2016-10-30 09:46)
DX: K85.90 Acute pancreatitis without necrosis or infection, unspecified (principal); K26.9 Duodenal ulcer, unspecified as acute or chronic, without hemorrhage or perforation; E78.5 Hyperlipidemia, unspecified; G47.33 Obstructive sleep apnea (adult) (pediatric); K44.9 Diaphragmatic hernia without obstruction or gangrene; F41.8 Other specified anxiety disorders; K21.9 Gastro-esophageal reflux disease without esophagitis; K29.70 Gastritis, unspecified, without bleeding; K29.80 Duodenitis without bleeding; Z79.82 Long term (current) use of aspirin; F17.210 Nicotine dependence, cigarettes, uncomplicated; Z82.49 Family history of ischemic heart disease and other diseases of the circulatory system; Z87.11 Personal history of peptic ulcer disease
CPT/HCPCS: 71010; 76705; 80053; 80061; 82550; 82784; 82787; 83690; 83735; 83880; 84484; 85025; 85610; 85730; 88305; 88312; 93005; 96374; 96375; C9113; J1170; J2270; J2405; J7030